=== PATIENT | female | born 1980 | race Caucasian/White ===

== ENCOUNTER 2022-02-24 12:09 | Inpatient (IN) | payer MEDICAID ==
[~2022-02-24] VITALS: Ht 175.3 cm; Wt 92.5 kg
[2022-02-24 12:49] LABS: HEMATOCRIT. 35.2 % (36.0-48.0); HEMOGLOBIN. 11.7 g/dL (12.0-16.0); MEAN CORPUSCULAR HEMOGLOBIN 27.9 pg (28.0-32.0); MEAN CORPUSCULAR VOLUME 83.7 fL (81.0-99.0); MEAN PLATELET VOLUME 6.9 fl (7.4-10.4); PLATELET 245 x1000/uL (130-400); RED CELL DISTRIBUTION WIDTH 14.9 % (11.6-14.6)
[2022-02-24 12:59] LABS: CHLORIDE 106 mEq/L (98-107)
[2022-02-24 13:07] LABS: HCG SCREEN NEGATIVE
[2022-02-24 13:14] LABS: PLATELET ESTIMATE NORMAL
[2022-02-24] MEDS ORDERED: IOHEXOL-300 100 ML BOTTLE ONE (14:41)
[2022-02-24] MEDS ORDERED: HYDROCODONE/ACETAMINOPHEN 5/325MG TABLET PO ONE (17:00)
[2022-02-24] MEDS ORDERED: AMPICILLIN SOD/SULBACTAM NA 3 G in SODIUM CHLORIDE 0.9% 100 ML IV SCH (18:00)
[2022-02-24 21:15] VITALS: BP 104/62
[2022-02-24] MEDS ORDERED: HYDROCODONE/ACETAMINOPHEN 5/325MG TABLET PO PRN (22:15)
[2022-02-24] MEDS ORDERED: NALOXONE HCL 0.4 MG/ML 1ML VIAL IV PRN (22:30)
[2022-02-25] VITALS: BP 112/66
[2022-02-25] MEDS ORDERED: AMPICILLIN 1,000 MG in SODIUM CHLORIDE 0.9% 50 ML IV SCH (01:00)
[2022-02-25] MEDS: AMPICILLIN SOD/SULBACTAM NA 3 G in SODIUM CHLORIDE 0.9% 100 ML IV SCH ×2 (02:58→09:36)
[2022-02-25 04:00] VITALS: BP 159/72
[2022-02-25 08:00] VITALS: BP_SYST 124; BP_DIAS 73; BP_DIAS 83
[2022-02-25 12:00] VITALS: BP 103/66
[2022-02-25 15:05] VITALS: BP 103/66
[2022-02-25] MEDS ORDERED: AMPICILLIN SOD/SULBACTAM NA 3 G in SODIUM CHLORIDE 0.9% 100 ML IV SCH (18:00)
== END 2022-02-25 17:06 | disposition home or self-care (01) | DRG 383 ==
LOC: ER 13:13 → 6WST 18:39 → ENRESERV 19:54
PROVIDERS: ADMIT Internal Medicine; ATTEND Internal Medicine
DX: L02.01 Cutaneous abscess of face (principal); J45.909 Unspecified asthma, uncomplicated; L03.90 Cellulitis, unspecified; Z20.822 Contact with and (suspected) exposure to COVID-19; Z79.899 Other long term (current) drug therapy
CPT/HCPCS: 36415; 70487; 80048; 84703; 85025; 99285; J0290; J0295; J7050; Q9967